=== PATIENT | female | born 1950 | race Caucasian/White ===

== ENCOUNTER 2016-10-02 16:22 | Emergency (ER) | payer MEDICAID ==
[~2016-10-02] VITALS: Ht 154.9 cm; Wt 63.5 kg
[2016-10-02] MEDS ORDERED: IBUPROFEN 600 MG TAB PO ONE (20:00)
[2016-10-02 20:07] VITALS: BP 114/74
== END 2016-10-02 20:39 | disposition home or self-care (01) ==
LOC: ER 16:24
DX: S92.351A Displaced fracture of fifth metatarsal bone, right foot, initial encounter for closed fracture (principal); X50.1XXA Overexertion from prolonged static or awkward postures, initial encounter; Y93.01 Activity, walking, marching and hiking; Y99.8 Other external cause status; Y92.89 Other specified places as the place of occurrence of the external cause
CPT/HCPCS: 29515; 73630